=== PATIENT | female | born 1970 | race Caucasian/White ===

== ENCOUNTER 2023-09-28 14:10 | Emergency (ER) | payer MEDICAID ==
[~2023-09-28] VITALS: Ht 157.5 cm; Wt 49.9 kg
[2023-09-28 14:13] VITALS: BP 132/78; PULSE 82; RESP 15; TEMP 97.6; O2SAT 100
[2023-09-28 14:37] VITALS: O2SAT 99
[2023-09-28 14:58] LABS: BASOPHILS # (AUTO) 0.1 K/uL (0.00-0.22); BASOPHILS % (AUTO) 1.2 % (0.0-2.0); EOSINOPHILS # (AUTO) 0.1 K/uL (0-0.4); EOSINOPHILS % (AUTO) 0.9 % (0.0-4.0); HEMATOCRIT 36.3 % (36-48); HEMOGLOBIN 12.5 g/dL (12.0-16.0); LYMPHOCYTES # (AUTO) 1.5 K/uL (2.5-16.5); LYMPHOCYTES % (AUTO) 20.2 % (20.5-51.1); MEAN CORPUSCULAR HEMOGLOBIN 34 pg (27-31); MEAN CORPUSCULAR HGB CONC 35 g/dL (33-37); MEAN CORPUSCULAR VOLUME 98.7 fL (80-94); MONOCYTES # (AUTO) 0.3 K/uL (0.8-1.0); MONOCYTES % (AUTO) 3.5 % (1.7-9.3); NEUTROPHILS # (AUTO) 5.4 K/uL (1.8-7.7); NEUTROPHILS % (AUTO) 74.2 % (42.2-75.2); PLATELET COUNT (AUTO) 259 K/uL (140-450); RED BLOOD CELL COUNT(AUTO) 3.68 MIL/uL (4.20-5.40); RED CELL DISTRIBUTION WIDTH 13.3 % (11.6-13.7); WHITE BLOOD COUNT (AUTO) 7.3 K/uL (4.8-10.8)
[2023-09-28 15:24] LABS: ALANINE AMINOTRANSFERASE 53 U/L (12-78); ALKALINE PHOSPHATASE 110 U/L (50-136); ANION GAP 20.1 (8-16); ASPARTATE AMINOTRANSFERASE 96 U/L (15-37); CALCIUM 9.2 mg/dL (8.5-10.1); CARBON DIOXIDE 23.3 mmol/L (21-32); CHLORIDE 99 mmol/L (98-107); CREATININE 1.2 mg/dL (0.6-1.3); GFR ARICAN-AMERICAN 61 mL/min (>90); GFR NON ARICAN-AMERICAN 50 mL/min (>90); GLUCOSE 107 mg/dL (74-106); POTASSIUM 4.4 mmol/L (3.5-5.1); SODIUM SERUM 138 mmol/L (136-145); TOTAL PROTEIN, SERUM 9.6 g/dL (6.4-8.2); UREA NITROGEN, BLOOD 14 mg/dL (7-18)
[2023-09-28 16:05] LABS: MAGNESIUM 2.3 mg/dL (1.8-2.4)
[2023-09-28 18:35] VITALS: BP 153/93; PULSE 98; RESP 16; TEMP 97.6; O2SAT 99
== END 2023-09-28 18:35 | disposition home or self-care (01) ==
LOC: MED 14:10
DX: R55 Syncope and collapse (principal); E86.0 Dehydration; M54.2 Cervicalgia
CPT/HCPCS: 36415; 70450; 71045; 72125; 80053; 83735; 84100; 84484; 85025; 93005; 99285